=== PATIENT | female | born 1970 | race Caucasian/White ===

== ENCOUNTER 2017-07-26 16:47 | Emergency (ER) | payer SELFPAY ==
[~2017-07-26] VITALS: Ht 152.4 cm; Wt 76.8 kg
[2017-07-26 17:07] VITALS: BP 154/88
[2017-07-26] MEDS ORDERED: GLIP5 PO (17:13)
[2017-07-26] MEDS ORDERED: LISI-660 PO (17:13)
[2017-07-26] MEDS ORDERED: METF850T2 PO (17:13)
[2017-07-26 17:17] LABS: GLUCOSE,POINT OF CARE 293 MG/DL (70-110)
[2017-07-26] MEDS ORDERED: METF500T4 PO (17:21)
== END 2017-07-26 18:28 | disposition left against medical advice (07) ==
LOC: EMS 16:49
DX: M54.2 Cervicalgia (principal); V49.40XA Driver injured in collision with unspecified motor vehicles in traffic accident, initial encounter; Y93.89 Activity, other specified; Y92.89 Other specified places as the place of occurrence of the external cause; Y99.8 Other external cause status; Z53.21 Procedure and treatment not carried out due to patient leaving prior to being seen by health care provider
CPT/HCPCS: 82962

== ENCOUNTER 2020-11-10 22:05 | Emergency (ER) | payer SELFPAY ==
[~2020-11-10] VITALS: Ht 152.4 cm; Wt 63.6 kg
[~2020-11-10 22:05] MED LIST: GLIP5 PO; LISI-892 PO; METF-960 PO
[2020-11-10 23:49] VITALS: BP 132/78
== END 2020-11-10 23:50 | disposition home or self-care (01) ==
LOC: EMS 22:05
DX: F43.9 Reaction to severe stress, unspecified (principal); E11.9 Type 2 diabetes mellitus without complications; I10 Essential (primary) hypertension
CPT/HCPCS: 99283; Z7502